=== PATIENT | female | born 1950 | race Caucasian/White ===

== ENCOUNTER 2018-04-15 13:58 | Outpatient (CLI) | payer MEDICARE | END 2018-04-15 13:59 | disposition home or self-care (01) | LOC: BICMAMMO 13:58 | PROVIDERS: ATTEND Family Medicine | DX: Z12.31 Encounter for screening mammogram for malignant neoplasm of breast (principal) | CPT/HCPCS: 77063; 77067 ==

== ENCOUNTER 2018-04-21 12:37 | Outpatient (CLI) | payer MEDICARE | END 2018-04-21 12:38 | disposition home or self-care (01) | LOC: BICMAMMO 12:37 | PROVIDERS: ATTEND Family Medicine | DX: N63.20 Unspecified lump in the left breast, unspecified quadrant (principal) | CPT/HCPCS: 76642; 77065; G0279 ==

== ENCOUNTER 2018-06-25 07:17 | Day surgery (SDC) | payer MEDICARE ==
[2018-06-25 07:50] LABS: #Lymphocytes 1.1 thou/uL (1.20-3.40); #Monocytes 0.5 thou/uL (0.11-0.59); #Neutrophils 4.5 thou/uL (1.40-6.50); %Basophils 0.5 % (0.0-1.0); %Eosinophils 0.8 % (0.0-10.0); %Lymphocytes 17.2 % (21.0-51.0); %Neutrophils 73.5 % (42.0-75.0); Hemoglobin 13.4 g/dL (12.0-16.0); Mean Corpuscular HGB CONC 31.5 g/dL (32.0-36.0); Mean Corpuscular Hemoglobin 29.7 pg (27.0-31.0); Mean Corpuscular Volume 94.4 fL (78.0-98.0); Mean Platelet Volume 8.2 fL (7.4-10.4); Platelet Count 156 thou/uL (130-400); RBC Distribution Width 12.4 % (11.5-14.5); Red Blood Cell (RBC) Count 4.52 mill/uL (4.20-5.40); White Blood Cell (WBC) Count 6.1 thou/uL (4.8-10.8)
[2018-06-25 08:00] LABS: Prothrombin Time 13.4 SEC (12.0-14.7)
[2018-06-25] MEDS ORDERED: Fentanyl 100 MCG/2 ML VIAL ONE (09:45)
[2018-06-25] MEDS ORDERED: Midazolam HCl 2 mg/2 ml Vial ONE (09:45)
[2018-06-25] MEDS ORDERED: Lidocaine 1% PF 5 ML VIAL ONE (09:45)
[2018-06-25] MEDS ORDERED: Sodium Bicarbonate 2.5 MEQ/5 ML VIAL ONE (09:46)
--- NOTE | 2018-06-25 11:39 | MRI ---
MRI CERVICAL SPINE WITH CONTRAST: HISTORY: This exam is performed in followup to a noncontrast cervical spine from 06/02/2018, which showed evid ence of a paraspinal mass in the musculature of the lower cervical spine, to the left. TECHNIQUE: Multiplanar, multisequential images of the cervical spine obtained. Post contrast images were obtain ed. FINDINGS: Post contrast images show diffuse enhancement of this mass. There are foci within the mid portion of this mass, which do not enhance, which may represent vascular structures. This mass has irregular m argins, measuring 3.7 cm in AP dimension x 2.5 cm in width. It appears to be located between the lev ator scapular muscle and the paraspinal musculature, just anterior to the rhomboid minor and trapeziu s musculature. IMPRESSION: The previously noted mass density in the left paraspinal musculature demonstrates diffuse enhancement on the post contrast study. There are nodular areas within this mass that do not enhance. This cou ld represent areas of central necrosis or possibly some nonenhancing venous structures. The borders are sharp, which would argue against a venolymphatic malformation. The patient is scheduled for a CT biopsy procedure. POS: [facility]
--- NOTE | 2018-06-25 12:40 | CT ---
NONCONTRAST ENHANCED CT IMAGES SOFT TISSUE NECK: HISTORY: Radiculopathy. FINDINGS: Noncontrast enhanced CT images soft tissue neck obtained. Images demonstrate an ill-defined mass just medial to the left levator scapulae muscle seen in the lo wer cervical region. This lesion measures approximately 3.9 x 1.9 cm. The lesion is posterior to th e posterior scalene muscle. It is of soft tissue density. Biopsy of this lesion is pending. Please also see accompanying MRI dictation. The right and left common carotid arteries are calcified. I am concerned about possible malignancy. No other significant abnormality is seen. IMPRESSION: Soft tissue mass medial to the left levator scapulae muscle. POS: [facility]
[2018-06-25 12:44] VITALS: BP 112/82; TEMP 98.8
--- NOTE | 2018-06-25 13:42 | CT ---
CT GUIDED PARASPINAL MASS BIOPSY: HISTORY: Paraspinal mass, left neck base. CONSCIOUS SEDATION: Versed 1 mg IV. Fentanyl 50 mcg IV. FINDINGS: After explaining the procedure and answering all questions, a CT neck was performed and reported sepa rately. The patient was placed on the CT table, in a right lateral decubitus position. radiology special procedure tech nique, buffered local anesthesia, CT guidance, conscious sedation, and a posterior approach were used to carefully advance a 22 gauge needle into the lobular mass at the left neck base posterior paraspi nal location. Attempt at aspiration with a 22 gauge needle yielded minimal blood. Additional local anesthesia was given. A 17 gauge trocar needle was then carefully advanced into the lesion, at which time significant venous blood was able to be aspirated and was submitted to pathology for evaluation . A total of three 18 gauge core biopsy specimens were also obtained and submitted to pathology for evaluation. The needle was removed. Post procedure imaging shows no evidence of complication. The patient tolerated the procedure well and was returned to the holding area in good condition, for furt her monitoring. IMPRESSION: Technically successful CT-guided biopsy, left posterior neck base paraspinal mass. While prior to th e biopsy, malignancy was favored, the behavior of the lesion at the time of biopsy is more suggestive of a vascular malformation. Pathology is pending. POS: [facility]
--- NOTE | 2018-06-28 15:24 | CT ---
CT GUIDED PARASPINAL MASS BIOPSY: HISTORY: Paraspinal mass, left neck base. CONSCIOUS SEDATION: Versed 1 mg IV. Fentanyl 50 mcg IV. FINDINGS: After explaining the procedure and answering all questions, a CT neck was performed and reported sepa rately. The patient was placed on the CT table, in a right lateral decubitus position. manager technical support nique, buffered local anesthesia, CT guidance, conscious sedation, and a posterior approach were used to carefully advance a 22 gauge needle into the lobular mass at the left neck base posterior paraspi nal location. Attempt at aspiration with a 22 gauge needle yielded minimal blood. Additional local anesthesia was given. A 17 gauge trocar needle was then carefully advanced into the lesion, at which time significant venous blood was able to be aspirated and was submitted to pathology for evaluation . A total of three 18 gauge core biopsy specimens were also obtained and submitted to pathology for evaluation. The needle was removed. Post procedure imaging shows no evidence of complication. The patient tolerated the procedure well and was returned to the holding area in good condition, for furt her monitoring. IMPRESSION: Technically successful CT-guided biopsy, left posterior neck base paraspinal mass. While prior to th e biopsy, malignancy was favored, the behavior of the lesion at the time of biopsy is more suggestive of a vascular malformation. Pathology is pending.
== END 2018-06-25 13:40 | disposition home or self-care (01) ==
LOC: SDC/OP 07:17 → EDSTATUS 10:00 → SDC/OP 13:40
PROVIDERS: ATTEND Surgery
PROC: 0W963ZX Drainage of Neck, Percutaneous Approach, Diagnostic (ICD-10-PCS; principal; 2018-06-25)
DX: R22.2 Localized swelling, mass and lump, trunk (principal); M54.12 Radiculopathy, cervical region; M48.02 Spinal stenosis, cervical region
CPT/HCPCS: 36415; 70490; 72142; 77002; 82565; 85025; 85610; 85730; 88112; 88305; 88333; 88334; J2001; J2250; J3010

== ENCOUNTER 2018-07-28 13:49 | Outpatient (CLI) | payer MEDICARE ==
[2018-07-28 16:27] LABS: Hemoglobin 13.1 g/dL (12.0-16.0); Mean Corpuscular HGB CONC 32.1 g/dL (32.0-36.0); Mean Corpuscular Hemoglobin 29.8 pg (27.0-31.0); Mean Corpuscular Volume 92.9 fL (78.0-98.0); Mean Platelet Volume 8.8 fL (7.4-10.4); Platelet Count 152 thou/uL (130-400); RBC Distribution Width 12.4 % (11.5-14.5); Red Blood Cell (RBC) Count 4.38 mill/uL (4.20-5.40)
[2018-07-28 16:34] LABS: INR-International Normal Ratio 1.4; Prothrombin Time 16.8 SEC (12.0-14.7)
[2018-07-28 16:35] LABS: PTT 35.3 SEC (22.9-36.1)
[2018-07-28 16:43] LABS: Anion Gap 10 mmol/L (10-20); BUN (Urea Nitrogen) 14 mg/dL (9.8-20.1); Calc. Creatinine Clearance 0 mL/min (70-130); Calcium 9.6 mg/dL (7.8-10.44); Carbon Dioxide 33 mmol/L (23-31); Chloride 99 mmol/L (98-107); Estimated GFR-MDRD 53; Glucose 73 mg/dL (80-115); Potassium 3.9 mmol/L (3.5-5.1); Sodium 138 mmol/L (136-145)
== END 2018-07-28 13:50 | disposition home or self-care (01) ==
LOC: LABBT 13:49
PROVIDERS: ATTEND Surgery
DX: Z01.818 Encounter for other preprocedural examination (principal); M54.12 Radiculopathy, cervical region; M48.02 Spinal stenosis, cervical region
CPT/HCPCS: 80048; 85027; 85610; 85730; 93005; 93010

== ENCOUNTER 2018-08-05 08:23 | Day surgery (SDC) | payer MEDICARE ==
[2018-07-28 14:17] VITALS: BMI 35.2
[2018-08-05] MEDS ORDERED: Sodium Chloride 0.9% 10 ML ONE (11:47)
[2018-08-05] MEDS ORDERED: Thrombin 5000 UNITS/5 ML VIAL ONE (11:47)
[2018-08-05] MEDS ORDERED: Midazolam HCl 2 mg/2 ml Vial ONE (13:06)
[2018-08-05] MEDS ORDERED: Fentanyl 100 MCG/2 ML VIAL ONE ×3 (13:06→16:08)
[2018-08-05] MEDS ORDERED: Meperidine HCl/PF 25 MG/ML VIAL SLOW IVP PRN (14:55)
[2018-08-05] MEDS ORDERED: PACU-Morphine 4MG/ML VIAL SLOW IVP PRN (14:55)
[2018-08-05] MEDS ORDERED: Promethazine HCl 25 MG/ML VIAL IM PRN (14:55)
[2018-08-05] MEDS ORDERED: Promethazine HCl 25 MG/ML VIAL SLOW IVP PRN (14:55)
[2018-08-05] MEDS ORDERED: Metoprolol Tartrate 5 MG/5 ML VIAL ONE (15:54)
[2018-08-05] MEDS ORDERED: Acetaminophen/Codeine 30-300mg Tablet PO PRN (15:58)
[2018-08-05] MEDS ORDERED: Fleet Enema 133 ML BOT PR PRN (15:58)
[2018-08-05] MEDS ORDERED: Acetaminophen 325 MG TAB PO PRN (15:58)
[2018-08-05] MEDS ORDERED: Milk Of Magnesia 30 ML UDCUP PO PRN (15:58)
[2018-08-05] MEDS ORDERED: traMADol HCl 50 MG TAB PO PRN (15:58)
[2018-08-05] MEDS ORDERED: Bisacodyl 10 MG SUPP PR PRN (15:58)
[2018-08-05] MEDS ORDERED: Mag-Al 1200 mg/1200 mg/30 ML UDCUP PO PRN (15:58)
[2018-08-05] MEDS ORDERED: Ondansetron HCl/PF 4 MG in Sodium Chloride 0.9% 50 ML IVPB PRN (15:59)
[2018-08-05] MEDS ORDERED: CEFAZOLIN/Water 2 GM/20 ML SYRINGE SLOW IVP SCH (16:00)
[2018-08-05] MEDS ORDERED: Fluticasone Propionate HFA 44 MCG AER INH PRN (16:00)
[2018-08-05] MEDS ORDERED: hydrALAZINE 20 MG/ML VIAL ONE (16:08)
[2018-08-05] MEDS ORDERED: hydrALAZINE 20 MG/ML VIAL SLOW IVP SCH (16:15)
[2018-08-05] MEDS: HYDROcodone/Acetaminophen 7.5/325 mg Tablet PO PRN (18:02)
[2018-08-05] MEDS: Sodium Chloride 0.9% 1,000 ML IV SCH ×2 (18:07→21:39)
[2018-08-05] MEDS: CEFAZOLIN 2 GM/50 ML-DEXTROSE 2 GM in Premix Bag 1 BAG IVPB SCH (18:45)
[2018-08-05] MEDS ORDERED: Atorvastatin Calcium 10 MG TAB PO SCH (21:00)
[2018-08-05] MEDS: Gabapentin 300 MG CAP PO SCH (21:38)
[2018-08-06] MEDS: HYDROcodone/Acetaminophen 7.5/325 mg Tablet PO PRN ×3 (01:04→13:11)
[2018-08-06] MEDS: CEFAZOLIN 2 GM/50 ML-DEXTROSE 2 GM in Premix Bag 1 BAG IVPB SCH ×2 (01:05→09:55)
[2018-08-06 04:56] VITALS: TEMP 98.3
--- NOTE | 2018-08-06 07:41 | OP ---
DATE OF PROCEDURE: 08/05/2018 OR: OR#12. WOUND TYPE: Type 1 wound. SURGEON: John Waters M.D. SUPERVISOR FABRICATION DEPARTMENT: Per Rm PA-C PREPROCEDURE DIAGNOSIES: Cervical stenosis with neck and arm pain and disk extrusion. POSTPROCEDURE DIAGNOSES: Cervical stenosis with neck and arm pain and disk extrusion. PROCEDURE: 1. Anterior C5-C6, C6-C7 diskectomies for decompression of spinal cord and nerve roots. 2. Placement of interbody spacer for arthrodesis C5-C6, C6-C7 with local bone autograft and allograf t. 3. Anterior cervical plate and screw fixation C5, C6, C7. 4. Use of operative microscope for microdissection. PROCEDURE: After informed consent was obtained from the patient, the patient brought to OR. Proper patient pause and identification was carried out. She was placed under excellent general endotrachea l anesthesia and positioned supine on the OR table. Cervical spine was kept in neutral position. Th e right anterior oblique osbaldo was made that would allow for approach to the C5, C6, C7 segments. Thi s region was sterilely cleansed, prepared, and draped. Proper patient pause and identification was c arried out. The wound was then opened with a combination of sharp, monopolar and blunt dissection. We proceeded lateral to the trachea and tracheoesophageal bundle and medial to the right carotid yancey th. We identified the prevertebral layer of deep cervical fascia and the longus colli muscles, these were retracted to allow for dissection. The C5, C6, C7 segments were exposed. Localization film co nfirmed our area of interest. We then performed distraction at C5-C6 and the microscope was brought in for microdissection. A C5-C6 diskectomy was performed with decompression of spinal cord and nerve roots and the endplates prepared. Interbody spacer packed with local bone autograft obtained from s sol incision and allograft was placed for arthrodesis. I was satisfied with the construct at this po int. We then released the distraction turned our attention to C6-C7. Distraction occurred at that s egment. A diskectomy was then performed at C6-C7 decompression of the neural elements. The endplate s were prepared, an interbody spacer packed with graft was placed as well at the C6-C7 segment for ar throdesis. Distraction was then released. We then turned our attention to removal of the microscope and anterior cervical plate screw fixation C5, C6, C7. This was done. Copious irrigation occurred throughout as did maximizing hemostasis. The wound was then closed in anatomic layers over a drain. The patient then emerged from anesthesia.
[2018-08-06] MEDS ORDERED: Potassium Chloride 20 MEQ TAB PO SCH (08:00)
[2018-08-06] MEDS ORDERED: Spironolactone 25 MG TAB PO SCH (08:00)
[2018-08-06 08:37] VITALS: BP 115/79
[2018-08-06] MEDS ORDERED: Escitalopram Oxalate 20 mg Tablet PO SCH (09:00)
[2018-08-06] MEDS ORDERED: Furosemide 80 MG TAB PO SCH (09:00)
[2018-08-06] MEDS ORDERED: busPIRone HCl 10 MG TAB PO SCH (09:00)
[2018-08-06] MEDS ORDERED: ALPRAZolam 1 MG TAB PO SCH (09:00)
[2018-08-06] MEDS ORDERED: Vitami E (Dl,Tocopheryl Acet) 400 UNITS CAP PO SCH (09:00)
[2018-08-06] MEDS ORDERED: Digoxin 0.125 MG TAB PO SCH (09:00)
[2018-08-06] MEDS ORDERED: Stress 600 With Zinc 1 TAB PO SCH (09:00)
[2018-08-06] MEDS ORDERED: Loratadine 10 MG TAB PO SCH (09:00)
[2018-08-06] MEDS: Gabapentin 300 MG CAP PO SCH (09:45)
== END 2018-08-06 13:45 | disposition home or self-care (01) ==
LOC: SDC 08:23 → SURG B 15:58 → SDC 08-06 13:45
PROVIDERS: ATTEND Surgery
PROC: 0RG20A0 Fusion of 2 or more Cervical Vertebral Joints with Interbody Fusion Device, Anterior Approach, Anterior Column, Open Approach (ICD-10-PCS; principal; 2018-08-05)
PROC: 0RG2070 Fusion of 2 or more Cervical Vertebral Joints with Autologous Tissue Substitute, Anterior Approach, Anterior Column, Open Approach (ICD-10-PCS; 2018-08-05)
PROC: 0RT30ZZ Resection of Cervical Vertebral Disc, Open Approach (ICD-10-PCS; 2018-08-05)
DX: M48.02 Spinal stenosis, cervical region (principal); M50.222 Other cervical disc displacement at C5-C6 level; Z79.01 Long term (current) use of anticoagulants; Z79.899 Other long term (current) drug therapy
CPT/HCPCS: 20930; 20936; 22551; 22552; 22845; 22853 ×2; 76001; C1713 ×2; C1776; 96374; 96375; 96376; J0131; J0360; J2250; J3010; J3490

== ENCOUNTER 2018-09-20 13:33 | Outpatient (CLI) | payer MEDICARE ==
--- NOTE | 2018-09-20 15:48 | RAD ---
FOUR VIEWS CERVICAL SPINE: Date: 09-20-18 Comparison: None. History: Cervical spine pain, prior surgery. FINDINGS: Anterior discectomy and fusion hardware is seen at the C5-6 and C6-7 level. No anterolisthesis or ret rolisthesis is noted within the cervical spine aside from minimal anterolisthesis at C3-4. No prevert ebral soft tissue swelling. There is significant degenerative change at the atlantoaxial interspace. Open mouth odontoid view demonstrates a normal appearing dens and C1-2 articulation. There is multile doreen mid cervical spine facet and uncal vertebral osteophyte formation. IMPRESSION: Post-operative and degenerative changes of the cervical spine as above. POS: [facility]
== END 2018-09-20 13:34 | disposition home or self-care (01) ==
LOC: TBSIIMAG 13:33
PROVIDERS: ATTEND Surgery
DX: M47.22 Other spondylosis with radiculopathy, cervical region (principal); M48.02 Spinal stenosis, cervical region; M50.10 Cervical disc disorder with radiculopathy, unspecified cervical region; Z98.1 Arthrodesis status
CPT/HCPCS: 72040

== ENCOUNTER 2018-11-17 13:57 | Outpatient (CLI) | payer MEDICARE ==
--- NOTE | 2018-11-17 15:02 | ULT ---
LEFT BREAST ULTRASOUND: Comparison: Mammogram and ultrasound, 04-21-18. History: Well circumscribed mass in the 2 o'clock position in the left breast on prior mammography. Technique: Multiplanar grayscale and color doppler images were obtained in a left breast ultrasound. FINDINGS: There is a well circumscribed hyperechoic mass at the 2 o'clock position of the right breast measurin g 2.8 x 1.4 x 1.9 cm in size. This does not demonstrate shadowing and is likely benign. This mass is also stable on mammography. IMPRESSION: BIRADS category 3 - probably benign finding. A 6 month follow up mammogram and ultrasound is recommen ded to ensure continued stability. POS: [facility]
== END 2018-11-17 13:58 | disposition home or self-care (01) ==
LOC: BICMAMMO 13:57
PROVIDERS: ATTEND Family Medicine
DX: R92.8 Other abnormal and inconclusive findings on diagnostic imaging of breast (principal); N63.20 Unspecified lump in the left breast, unspecified quadrant
CPT/HCPCS: 76642; 77065; G0279

== ENCOUNTER 2019-02-10 11:02 | Inpatient (IN) | payer MEDICARE ==
[2019-02-10] MEDS ORDERED: Acetaminophen 500 MG TAB ONE (11:34)
[2019-02-10] MEDS ORDERED: Azithromycin 500 MG VIAL ONE (11:34)
[2019-02-10] MEDS ORDERED: cefTRIAXone\\ROCEPHIN 1 GM VIAL ONE (11:34)
--- NOTE | 2019-02-10 11:34 | RAD ---
Exam: Chest one view HISTORY:Cough Comparison: None FINDINGS: Cardiac silhouette:Mild cardiomegaly Pulmonary vessels: Mildly prominent Costophrenic angles: Minimal blunting of the left costophrenic angle LUNGS: Hazy opacification the left lung base due to pleural effusion with adjacent parenchymal change s. Pneumothorax: None Osseous abnormalities: Cervical fusion hardware is noted. IMPRESSION: 1. Pleural and parenchymal changes in the left lung base. Continued surveillance is recommended.
[2019-02-10 11:56] LABS: ALT (SGPT) 14 U/L (8-55); AST (SGOT) 21 U/L (5-34); Albumin 4.1 g/dL (3.4-4.8); Alkaline Phosphatase 58 U/L (40-150); Anion Gap 10 mmol/L (10-20); BUN (Urea Nitrogen) 11 mg/dL (9.8-20.1); Bilirubin, Total 0.6 mg/dL (0.2-1.2); Calc. Creatinine Clearance 0 mL/min (70-130); Calcium 9.1 mg/dL (7.8-10.44); Carbon Dioxide 31 mmol/L (23-31); Chloride 96 mmol/L (98-107); Estimated GFR-MDRD 47; Glucose 104 mg/dL (80-115); Protein, Total 7.1 g/dL (6.0-8.3); Sodium 133 mmol/L (136-145)
[2019-02-10 11:57] LABS: #Lymphocytes 0.4 thou/uL (1.20-3.40); #Monocytes 0.3 thou/uL (0.11-0.59); #Neutrophils 4.4 thou/uL (1.40-6.50); %Basophils 0.3 % (0.0-1.0); %Eosinophils 0.2 % (0.0-10.0); %Lymphocytes 7.8 % (21.0-51.0); %Monocytes 5.1 % (0.0-10.0); %Neutrophils 86.6 % (42.0-75.0); Hemoglobin 12.5 g/dL (12.0-16.0); Mean Corpuscular HGB CONC 31.7 g/dL (32.0-36.0); Mean Corpuscular Hemoglobin 29.7 pg (27.0-31.0); Mean Corpuscular Volume 93.8 fL (78.0-98.0); Mean Platelet Volume 8.8 fL (7.4-10.4); Platelet Count 111 thou/uL (130-400); Platelet Morphology Comment Appears Decreased; RBC Distribution Width 12.2 % (11.5-14.5); RBC Morphology Normal; Red Blood Cell (RBC) Count 4.22 mill/uL (4.20-5.40); White Blood Cell (WBC) Count 5.1 thou/uL (4.8-10.8)
[2019-02-10] MEDS ORDERED: Diltiazem 125 MG/25 ML ONE (12:39)
[2019-02-10] MEDS ORDERED: Diltiazem 125 MG in Sodium Chloride 0.9% 100 ML IVPB SCH ×2 (13:00→19:00)
[2019-02-10] MEDS: Cefepime 2 GM in Sodium Chloride 0.9% 100 ML IVPB SCH (17:46)
[2019-02-10] MEDS: methylPREDNISolone Sod Succ 40 MG VIAL IVP SCH (17:47)
[2019-02-10 19:08] LABS: Actual Bicarbonate (HCO3a) 26.2 mEq/L (22-28); Base Excess (BEa) -3.9 mEq/L (-2.0 to +3.0); Calcium, Ionized 1.12 mmol/L (1.12-1.30); Carboxyhemoglobin (COHb) 0.6 gm% (0.0-3.0); Hemoglobin (Hb) 13.2 g/dL (12.0-16.0); O2 Tension (PaO2) 69.3 mmHg (> 80.0); Potassium - ABG Lab 4.34 mmol/L (3.70-5.30)
[2019-02-10] MEDS ORDERED: Diltiazem HCl 125 MG, Admixture Fee 1 EACH in Sodium Chloride 0.9% 100 ML IVPB SCH (19:30)
[2019-02-10] MEDS: ALPRAZolam 1 MG TAB PO PRN (19:42)
[2019-02-10] MEDS ORDERED: Ibuprofen 200 MG TAB PO PRN (19:43)
[2019-02-10 20:14] LABS: CO2 Tension 73.7 mmHg (35.0-45.0); Puncture Site RBRACHIAL; pH, Arterial 7.17 (7.35-7.45)
[2019-02-10 20:15] LABS: ALV-art Gradient 280.635 (0-20)
--- NOTE | 2019-02-11 00:07 | CON ---
DATE OF CONSULTATION: HISTORY OF PRESENT ILLNESS: Yesenia Matt is a 68-year-old female patient of Dr. Lara who has presented to the ER with shortness of breath, hypoxemia going on for several days. She says she was coughing some yellow to brown sputum, chills and sweats. Her sats apparently were 87% to 78%. She was placed on a non-rebreather, sats are apparently 99. She is now in the MICU where she is complaining of significant distress. Nurses notified me about the patient in the MICU and the reason for consult is long-time smoker, 4 packs a day, quit smoking several years ago. No previous history of pneumonia, TB, or asthma, though she says prior to a recent admission she was active. She could walk up to a block without getting markedly short of breath. PAST MEDICAL HISTORY: 1. Atrial fibrillation. She sees a local camp program director. 2. History of major anxiety. 3. History of multiple medications. PREVIOUS SURGERIES: Including shoulder surgery, appendectomy, tubal ligation, cervical surgery. HOME MEDICATIONS: Includes: 1. Xarelto 20. 2. Digoxin 0.25. 3. ProAir inhaler. 4. Lasix 80. 5. Claritin. 6. Metoprolol 25. 7. Protonix 40. 8. Spironolactone 25. 9. Vitamin E. 10. BuSpar 15. 11. Tramadol p.r.n. 12. Tizanidine t.i.d. 1 daily. ALLERGIES: NONE. 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 ALLERGIES: NONE. REVIEW OF SYSTEMS: Ten-point negative. PHYSICAL EXAMINATION: VITAL SIGNS: Blood pressure 128/80, pulse 122 irregular, temperature 99, respiratory 24, sats are 95% on supplemental oxygen. CHEST: Bilateral rhonchi, crackles, minimal wheezing. CARDIAC: SVT. ABDOMEN: Soft. LABORATORY DATA: White count 5000, H and H 12 and 39, platelet count is low 111. Lytes are normal, creatinine 1.6, sodium 133. IMAGING: Chest x-ray shows a questionable infiltrate in the left base, some cardiomegaly. The last echo I read was normal. BNP was 100. IMPRESSION: 1. Respiratory failure. 2. Bronchitis. 3. Chronic obstructive pulmonary disease. 4. Possible left-sided pneumonia with atrial fibrillation. 5. Obesity. 6. Anxiety. 7. Mild azotemia. PLAN: She was started on broad-spectrum antibiotics, neb treatments, steroids to her present regime. If condition gets worse, we will put on high-flow, presently she is on BiPAP, try and get a sputum culture. Serial exam. TIME SPENT: This is a 45-minute critical time. Job ID: [id number]
--- NOTE | 2019-02-11 01:29 | HP ---
HISTORY OF PRESENT ILLNESS: This is a 68-year-old female, patient of Dr. Pillo Lara. She reported to the ER with trouble breathing with palpitations, with a history of atrial fibrillation. In the ER, the workup done showed a small pleural effusion on the left side with atrial fibrillation and RVR with a rate in the 140s. The patient states that she started a couple days ago with a cough. She took Mucinex to try to help that and then today this became much worse where she was having more trouble getting her breath in and could feel her heart going faster. PAST MEDICAL HISTORY: Positive for hypertension, hyperlipidemia, atrial fibrillation, atherosclerotic cardiovascular disease, GERD, history of anxiety, and she has had some neuropathic pain. ALLERGIES: SHE HAS NO KNOWN DRUG ALLERGIES. HER CHART FROM THE OFFICE SHOWS THAT SHE HAD BEEN LAST SEEN BY DR. LARA IN OCTOBER FOR HYPERTENSION. PAST MEDICAL HISTORY STATED. PAST SURGICAL HISTORY: She had a neck, cervical spine surgery performed in August here by Dr. Waters. She had an appendectomy in 2010. MEDICATIONS: 1. BuSpar 15 mg twice a day. 2. Lexapro 20 mg a day. 3. Spironolactone 25 mg once a day. 4. Pravastatin 40 mg once a day. 5. Protonix 40 mg daily. 6. Digoxin 125 mcg daily. 7. P.r.n. tramadol, p.r.n. tizanidine for muscle spasms. 8. She is on vitamin D. 9. She is on 400 mg of vitamin E twice a day. 10. She is on B12 tablet. 11. She is also on 40 mg of Lasix twice a day. 12. Potassium chloride 20 mEq twice a day. 13. She is on alprazolam 1 mg twice a day p.r.n. 14. She is on gabapentin 300 mg t.i.d. SOCIAL HISTORY: She is , lives at home with her spouse. She was a former smoker, says she stopped in 2009. Occasional alcohol use. No illicit drug use. FAMILY HISTORY: Father was an alcoholic, had some kind of mental illness. Mother had heart disease and from [place]. Also had thyroid disease and anemia. She has a sister with some kind of an unspecified mental illness. REVIEW OF SYSTEMS: Patient is currently in the ICU, anxious, trying to breathe, and is not exactly being very cooperative with history taking due to the anxiety related to her tachypnea, but she denies any headache or visual changes. She denies any trouble chewing or swallowing. No anorexia. She denies any hemoptysis or hematemesis. She denies any nausea or vomiting. She denies any abdominal discomfort or pain. She has had loose bowels, she states for a long time and the nurses are worried because the odor is similar to a C diff stool, so that will be checked. She denies any dysuria or hematuria. She denies any paresis or paresthesias. She denies any homicidal or suicidal ideations. She denies any auditory or visual hallucinations. She denies any changes in her medication other than the Mucinex that she took for the last couple of days. PHYSICAL EXAMINATION: GENERAL: She is restless, uncomfortable, having some air hunger. VITAL SIGNS: She is afebrile, but tachypneic with a respiratory rate when she initially got here in the 20s to 30s. BP 130s over 80s, but tacking anywhere from 130s up to 150s in atrial fibrillation. HEENT: Her pupils are equal, round, reactive to light and accommodation. Sclera is anicteric. SKIN: Dry and intact. Moist. NECK: Supple. No JVD. No bruits. No thyromegaly. HEART: S1, S2, with irregularly irregular rhythm. No rubs or murmurs or gallops. LUNGS: Bilateral rales. There is no egophony. There are no rhonchi. She does have occasional wheezes. ABDOMEN: Soft, nontender, and nondistended. No palpable masses. No hepatosplenomegaly. GENITOURINARY: Deferred. RECTAL: Deferred. EXTREMITIES: Showed good palpable pulses in all 4 extremities. No cyanosis, clubbing, or edema. NEUROLOGIC: She is grossly intact, but very nervous and agitated with an O2 saturation that is dropping down into the 80s. LABORATORY DATA: Her white count is normal at 5.1, H and H is 12.5 and 39.5, platelet is 111, neutrophils at 86%, lymphocytes at 7.8%. Her chemistries shows sodium is slightly low at 133, potassium 4.0, chloride 96, bicarb is 31, BUN is 11, creatinine is 1.1. GFR is at 47. Glucose is at 104. Lactic acid is at 1.2. Calcium is normal at 9. AST is 21, ALT is 14. Beta-natriuretic peptide is at 100.3. Her dig level is 0.7. Chest x-ray shows slight left-sided pleural effusion. No true consolidation. Otherwise, lungs are clear. ASSESSMENT: Respiratory distress, atrial fibrillation with RVR. PLAN: We will plan on admission to the ICU, supportive care. We will start on diltiazem drip. Dr. Vega has been consulted from ICU. Dr. García will be consulted, that is her bunch maker. The patient does state that she sees Dr. Smith for her bowels, but we will check her stool for infection of C diff. ER doctor was concerned about pneumonia. I am not convinced that this is a pneumonia. It seems to be more of a COPD type exacerbation, although she has been told that she has COPD. Job ID: [id number]
[2019-02-11] MEDS: methylPREDNISolone Sod Succ 40 MG VIAL IVP SCH ×4 (01:31→16:59)
[2019-02-11 02:20] LABS: Bilirubin Negative (Negative); Blood, Urine Negative (Negative); Clarity CLEAR (Clear); Glucose, Urine (Dipstick) Negative (Negative); Leukocyte Trace (Negative); Nitrite Negative (Negative); Protein, Urine (Dipstick) 30 mg/dL (Neg-Trace); Specific Gravity, Urine 1.019 (1.002-1.036); Urobilinogen 0.2 mg/dL (0.2-1.0)
[2019-02-11 02:23] LABS: Bacteria/HPF None Seen HPF (None Seen); Hyaline Casts/LPF 7-10 HYALINE CAST LPF (0-3 Hyaline); Pathc Cast-AUWi Flag 2.04 (0-2.49); RBC/HPF 0-3 HPF (0-3); Squamous Epithelial 0-3 HPF (0-3)
[2019-02-11 02:25] LABS: Yeast-AUWi Flag 32.2 (0-25.0)
[2019-02-11 02:28] LABS: Yeast-All Forms None Seen HPF (None Seen)
[2019-02-11 02:30] LABS: Urine Culture Reflex Yes Yes
[2019-02-11] MEDS: Cefepime 2 GM in Sodium Chloride 0.9% 100 ML IVPB SCH ×2 (05:01→16:59)
--- NOTE | 2019-02-11 08:37 | RAD ---
CHEST ONE VIEW: HISTORY: Chest pain. COMPARISON: 02/10/2019 FINDINGS: There are worsening bilateral interstitial and linear parenchymal changes in the bases and pleural ef fusions, along with cardiomegaly. Mild bilateral vascular congestion. IMPRESSION: Developing bibasilar interstitial and alveolar opacity changes with small pleural effusions, minimal cardiomegaly, and stable vascular congestion. Continued short-term followup. POS: [facility]
--- NOTE | 2019-02-11 08:46 | PRG ---
DATE OF SERVICE: 02/11/2019 SUBJECTIVE: This morning, she is awake, alert, and responsive. Her gases yesterday showed marked respiratory acidosis. She was placed on BiPAP. OBJECTIVE: VITAL SIGNS: Temperature 97, pulse 85, blood pressure 104/78. CHEST: Decreased breath sounds. No wheezing. CARDIAC: Normal S1, S2. No gallops. ABDOMEN: No masses. LABORATORY DATA: White count 5000. Lytes are normal. Platelet count is decreased at 111. PCO2 was 73, pH was 7.17 with a PO2 of 69 on nasal O2. Creatinine 1.6. IMPRESSION: 1. Chronic obstructive pulmonary disease exacerbation. 2. Supraventricular tachycardia. 3. Possibly pneumonia. 4. Tobacco abuse. PLAN: Restart home antianxiety medication. X-ray being ordered. Continue steroids. She may need nocturnal BiPAP. Nutrition. PT. Will follow. Job ID: [id number]
[2019-02-11] MEDS ORDERED: Furosemide 40 MG TAB PO SCH (09:00)
[2019-02-11] MEDS: busPIRone HCl 5 MG TAB PO SCH (09:45)
[2019-02-11] MEDS: Rivaroxaban 10 MG TAB PO SCH (09:46)
[2019-02-11] MEDS: Digoxin 0.125 MG TAB PO SCH (09:46)
[2019-02-11] MEDS: Acetaminophen 500 MG TAB PO PRN (09:47)
[2019-02-11] MEDS: Escitalopram Oxalate 20 mg Tablet PO SCH ×2 (09:47→09:48)
[2019-02-11] MEDS: Spironolactone 25 MG TAB PO SCH (09:47)
[2019-02-11] MEDS: Furosemide 40 MG TAB PO SCH (09:47)
[2019-02-11] MEDS: ALPRAZolam 1 MG TAB PO SCH (09:48)
[2019-02-11] MEDS: Gabapentin 300 MG CAP PO SCH ×3 (09:48→20:59)
[2019-02-11] MEDS ORDERED: Furosemide 40 MG/4 ML VIAL SLOW IVP SCH ×2 (10:00→20:00)
[2019-02-11] MEDS: Potassium Chloride 20 MEQ TAB PO SCH (12:19)
--- NOTE | 2019-02-11 15:30 | CON ---
DATE OF CONSULTATION: 02/11/2019 ADDENDUM: Ms. Matt is feeling better after the diuretics. Her breathing is improved. Repeat BNP came back to 208. ASSESSMENT: Congestive heart failure, diastolic, acute on chronic improving. The patient also has bronchitis. PLAN: 1. Continue intravenous diuretics. 2. Continue intravenous diltiazem. Dose could probably be reduced as her situation improves. She does have chronic atrial fibrillation. Job ID: [id number]
--- NOTE | 2019-02-11 15:55 | CON ---
DATE OF CONSULTATION: 02/11/2019 REASON FOR CONSULTATION: 1. Difficulty breathing. 2. Atrial fibrillation. HISTORY OF PRESENT ILLNESS: Ms. Yesenia Matt is a very delightful 68-year-old woman, who has been having trouble breathing for a few days, finally went to the emergency room with severe difficulty breathing, and was transferred here for further care. The patient had a very high heart rate and atrial fibrillation with a very rapid ventricular response yesterday and has improved since then. The patient has received antibiotics, bronchodilators, and steroids. No chest pain or pressure. PAST HISTORY: 1. She has a history of chronic atrial fibrillation. 2. She had a previous cardiac catheterization showing no obstructive coronary stenosis at an outlying institution. 3. Chronic diastolic heart failure. It has been previously compensated. MEDICATIONS: Prior to admission, the patient was on Xarelto 20 mg a day, digoxin 0.125 mg a day, spironolactone 25 mg a day, potassium 20 mEq a day, Lasix 80 mg in the morning, and Toprol-XL 25 mg a day. ALLERGIES: NONE KNOWN. SOCIAL HISTORY: No alcohol or tobacco. She has a very supportive . REVIEW OF SYSTEMS: CONSTITUTIONAL: No significant weight gain or loss. Vision, no changes. Hearing, no change. PULMONARY: Positive shortness of breath. CARDIAC: Positive shortness of breath. GASTROINTESTINAL: No nausea, vomiting, or diarrhea. PHYSICAL EXAMINATION: GENERAL: This is a pleasant 68-year-old woman, in no distress. VITAL SIGNS: Blood pressure is 103/74, pulse 80, it is irregularly irregular. NECK: Veins are normal. Carotids, normal upstrokes. LUNGS: Clear anteriorly and laterally. CARDIAC: Irregularly irregular. No murmur, rub, or gallop. ABDOMEN: Soft and nontender. EXTREMITIES: Warm and dry. No clubbing or cyanosis or edema. PERTINENT LABORATORY: Sodium is 133. The BNP yesterday was 100.3. She had a blood gas yesterday, pH 7.17, pCO2 73.7, and PO2 69.3. Chest x-ray yesterday, some pleural and parenchymal changes in left base, but x-ray today to my interpretation, looks more like pulmonary vascular congestion. ASSESSMENT: 1. Atrial fibrillation, chronic with recent increase in rate, probably secondary to high catecholamine levels due to severe respiratory insufficiency. 2. Shortness of breath, could be multifactorial, probably some role of diastolic dysfunction, may be having some bronchitis as well. PLAN: 1. We will give her a dose of furosemide. 2. Recheck BNP. 3. We will try to reduce diltiazem. 4. Continue Xarelto. 5. Really need to avoid ibuprofen with Xarelto. 6. I will check back with her later to see how she is doing. Job ID: [id number]
--- NOTE | 2019-02-11 17:22 | PRG ---
DATE OF SERVICE: 02/11/2019 SUBJECTIVE: The patient is doing better today, breathing easier, still on the high-flow oxygen. OBJECTIVE: VITAL SIGNS: Heart rate is down to 82, O2 saturation is up to 98%. Her respiratory rate is 20 to 22. GENERAL: The patient had diuresis done earlier today after Dr. García saw her from a repeat chest x-ray with BNP doubled from 100 to 200 and after diuresis, she was feeling better. Chest x-ray still did not show any evidence of pneumonia. LUNGS: Still show some bilateral wheezes and rales, but mostly distant auscultatory sounds. HEART: Shows no rubs or murmurs or gallops. EXTREMITIES: Show good palpable pulses in all four extremities. ASSESSMENT: Still respiratory distress, chronic obstructive pulmonary disease exacerbation with combined systolic and diastolic congestive heart failure exacerbation. PLAN: Continue respiratory treatment for her shortness of breath. Note, would be weaning off the high-flow oxygen towards room air again where she was prior. Job ID: [id number]
[2019-02-11] MEDS: ALPRAZolam 1 MG TAB PO PRN (21:05)
[2019-02-12] MEDS: methylPREDNISolone Sod Succ 40 MG VIAL IVP SCH ×4 (01:35→18:25)
[2019-02-12 05:42] LABS: Anion Gap 11 mmol/L (10-20); BUN (Urea Nitrogen) 18 mg/dL (9.8-20.1); Calc. Creatinine Clearance 76 mL/min (70-130); Calcium 9.1 mg/dL (7.8-10.44); Carbon Dioxide 27 mmol/L (23-31); Chloride 105 mmol/L (98-107); Estimated GFR-MDRD 57; Glucose 169 mg/dL (80-115); Potassium 4.4 mmol/L (3.5-5.1); Sodium 139 mmol/L (136-145)
[2019-02-12] MEDS: Furosemide 20 MG/2 ML VIAL SLOW IVP SCH ×2 (05:54→16:36)
[2019-02-12] MEDS: Cefepime 2 GM in Sodium Chloride 0.9% 100 ML IVPB SCH ×2 (05:54→18:24)
[2019-02-12] MEDS: busPIRone HCl 5 MG TAB PO SCH (08:52)
[2019-02-12] MEDS: ALPRAZolam 1 MG TAB PO SCH (08:52)
[2019-02-12] MEDS: Digoxin 0.125 MG TAB PO SCH (08:53)
[2019-02-12] MEDS: Escitalopram Oxalate 20 mg Tablet PO SCH ×2 (08:53)
[2019-02-12] MEDS: Furosemide 40 MG TAB PO SCH (08:54)
[2019-02-12] MEDS: Gabapentin 300 MG CAP PO SCH ×3 (08:54→20:36)
[2019-02-12] MEDS: Diltiazem HCl 125 MG, Admixture Fee 1 EACH in Sodium Chloride 0.9% 100 ML IVPB SCH (08:54)
[2019-02-12] MEDS: Rivaroxaban 10 MG TAB PO SCH (08:54)
[2019-02-12] MEDS: Spironolactone 25 MG TAB PO SCH (08:54)
[2019-02-12] MEDS: Potassium Chloride 20 MEQ TAB PO SCH (11:54)
[2019-02-12] MEDS ORDERED: ALPRAZolam 0.5 MG TAB PO PRN (12:45)
--- NOTE | 2019-02-12 14:37 | PRG ---
DATE OF SERVICE: 02/12/2019 SUBJECTIVE: Yesenia Matt remains on high-flow O2. She has no complaints. She states she is feeling much better than when she was admitted, although she is not back to her baseline. OBJECTIVE: VITAL SIGNS: Afebrile, heart rate 82, respiratory rate in the low 20s, and oximetry is 95% on high-flow oxygen 40. Heart rate 99. At noon, last blood pressure recorded was 100/74. LUNGS: Still remarkable for faint wheezes. HEART: Regular rhythm. ABDOMEN: Soft and nontender. EXTREMITIES: Without edema. IMPRESSION: 1. Severe chronic obstructive pulmonary disease with an exacerbation. 2. Supraventricular tachycardia/atrial fibrillation. She responded to diuresis yesterday per Dr. García's note. She will continue with BiPAP intermittently and high-flow O2. Chest x-ray showed findings suggestive of pulmonary edema, though I suspect is rate related. We will continue with supportive care. Job ID: [id number]
--- NOTE | 2019-02-12 16:10 | PRG ---
DATE OF SERVICE: 02/12/2019 HISTORY OF PRESENT ILLNESS: The patient states she is doing better than yesterday. Nursing staff has along with Respiratory Therapy weaned the patient down to high-flow from BiPAP. The patient does have considerable anxiety still, but is coping better on prior home medications including buspirone as well as alprazolam. The patient has fan on face at bedside. Per nursing, the patient has tolerated diuresis well from yesterday. Review of vital signs; temperature of 99.4, pulse of 79 on Cardizem drip, respiratory rate of 22, oxygen saturation 97% on high-flow delivery system, blood pressure 100/79. Sodium of 139, potassium of 4.4, creatinine of 0.97. PHYSICAL EXAMINATION: GENERAL: The patient is in mild respiratory distress. HEENT: Head is normocephalic and atraumatic. Extraocular movements are intact. High-flow system and nasal cannula. Oral mucosa is moist. NECK: Supple. HEART: Irregular rate. Irregular rhythm at the time of exam. LUNGS: Coarse breath sounds bilaterally. Diminished at lower bases bilaterally. ABDOMEN: Soft and nontender. Positive bowel sounds throughout. EXTREMITIES: Lower extremities without cyanosis or edema. NEUROLOGIC: The patient is alert and oriented x3, somewhat anxious and has labile mood, tearful at times. ASSESSMENT AND PLAN: Supraventricular tachycardia, atrial fibrillation with rapid ventricular response, chronic obstructive pulmonary disease, [id number] respiratory failure, combined congestive heart failure, anxiety, and hypertension. Continue management per Cardiology and Pulmonology. Continue to follow along. The patient's anxiety medications have been restarted. Encourage the patient to comply with adjunctive therapy such as fan at bedside on face. She states that, at the time being, the alprazolam is helping her cope with oxygen hunger. I believe current plan is to sleep on BiPAP. We will continue to follow along. Job ID: [id number]
[2019-02-13] MEDS: methylPREDNISolone Sod Succ 40 MG VIAL IVP SCH ×4 (00:50→17:18)
[2019-02-13] MEDS: Diltiazem HCl 125 MG, Admixture Fee 1 EACH in Sodium Chloride 0.9% 100 ML IVPB SCH (00:50)
[2019-02-13] MEDS: Furosemide 20 MG/2 ML VIAL SLOW IVP SCH ×2 (06:17→14:46)
[2019-02-13] MEDS: Cefepime 2 GM in Sodium Chloride 0.9% 100 ML IVPB SCH ×2 (06:17→17:18)
[2019-02-13 08:40] LABS: ALT (SGPT) 22 U/L (8-55); AST (SGOT) 20 U/L (5-34); Albumin 3.9 g/dL (3.4-4.8); Alkaline Phosphatase 50 U/L (40-150); Anion Gap 13 mmol/L (10-20); BUN (Urea Nitrogen) 22 mg/dL (9.8-20.1); Bilirubin, Total 0.5 mg/dL (0.2-1.2); Calc. Creatinine Clearance 68 mL/min (70-130); Calcium 9.3 mg/dL (7.8-10.44); Carbon Dioxide 28 mmol/L (23-31); Chloride 102 mmol/L (98-107); Estimated GFR-MDRD 49; Globulin 2.8 g/dL (2.4-3.5); Glucose 190 mg/dL (80-115); Protein, Total 6.7 g/dL (6.0-8.3); Sodium 139 mmol/L (136-145)
[2019-02-13] MEDS: Spironolactone 25 MG TAB PO SCH (08:50)
[2019-02-13] MEDS: busPIRone HCl 5 MG TAB PO SCH (08:50)
[2019-02-13 08:51] LABS: Band 7 % (5-11); Hemoglobin 11.4 g/dL (12.0-16.0); Lymphocytes 13 % (21-51); MDiff Complete? YES; Mean Corpuscular HGB CONC 31.8 g/dL (32.0-36.0); Mean Corpuscular Hemoglobin 29.5 pg (27.0-31.0); Mean Corpuscular Volume 92.7 fL (78.0-98.0); Mean Platelet Volume 9.4 fL (7.4-10.4); Neutrophil 80 % (42-75); Platelet Count 97 thou/uL (130-400); Platelet Morphology Comment Appears Adequate; Red Blood Cell (RBC) Count 3.88 mill/uL (4.20-5.40); White Blood Cell (WBC) Count 6.3 thou/uL (4.8-10.8)
[2019-02-13] MEDS: Gabapentin 300 MG CAP PO SCH ×3 (08:51→21:16)
[2019-02-13] MEDS: Furosemide 40 MG TAB PO SCH (08:51)
[2019-02-13] MEDS: Digoxin 0.125 MG TAB PO SCH (08:51)
[2019-02-13] MEDS: Escitalopram Oxalate 20 mg Tablet PO SCH ×2 (08:51→08:52)
[2019-02-13] MEDS: Acetaminophen 500 MG TAB PO PRN (08:52)
[2019-02-13] MEDS: Rivaroxaban 10 MG TAB PO SCH (08:55)
[2019-02-13] MEDS ORDERED: ALPRAZolam 0.5 MG TAB PO SCH (09:00)
[2019-02-13] MEDS: Potassium Chloride 20 MEQ TAB PO SCH (11:22)
[2019-02-13] MEDS: Lorazepam 1 MG TAB PO SCH ×2 (14:46→21:16)
--- NOTE | 2019-02-13 16:08 | PRG ---
DATE OF SERVICE: 02/13/2019 SUBJECTIVE: Yesenia Matt is looking better. She is off high-flow oxygen. She is on 2 L per minute. OBJECTIVE: VITAL SIGNS: Heart rate is 87, respiratory rate is 20, oximetry is 99%, and blood pressure is 117/76. LUNGS: Remarkable for end-expiratory wheezes. HEART: Regular rhythm. ABDOMEN: Soft. EXTREMITIES: Trace edema. LABORATORY DATA: White count 6.3, hemoglobin 11.4, platelets 97,000. Sodium 139, potassium 4, chloride 102, bicarb 28, BUN 22, and creatinine 1.12. IMPRESSION: 1. Chronic obstructive pulmonary disease. 2. Chronic respiratory failure with hypoxia and hypercarbia. 3. Deconditioning. 4. Atrial fibrillation. PLAN: Continue supportive care. She appears to be clinically improving. Job ID: [id number]
--- NOTE | 2019-02-13 23:11 | PRG ---
DATE OF SERVICE: 02/13/2019 SUBJECTIVE: The patient still states that she has struggles with oxygen hunger and anxiety, and is amicable to changing Xanax to Ativan at this point in time and keeping a schedule. Otherwise, has been weaned off the high-flow down to nasal cannula today. Remains on drip therapy for heart rate control and cefepime and Levaquin at this point in time to cross coverage for lung, doing well with breathing treatments. Remains on IV steroids. The patient has no additional acute complaints. Remains on the IV Lasix. Vital signs; temperature 97.7, pulse of 76 on drip, oxygen saturation 99% on 3 L nasal cannula, respirations 24. Laboratory work; white blood cell count 6.3, hemoglobin 11.4. Creatinine of 1.1 , glucose of 190, sodium of 139 with potassium of 4.0. C diff toxin negative. Urine negative at 36 hours. Blood cultures negative at 48 hours. PHYSICAL EXAMINATION: GENERAL: The patient is alert and oriented, in no acute distress. HEENT: Head is normocephalic and atraumatic. Extraocular movements are intact. Sclerae are clear. Oral mucosa is most__. NECK: Supple. HEART: Irregularly irregular. LUNGS: Coarse bronchial breath sounds bilaterally. Diminished breath sounds bilateral bases. No wheezes, rhonchi, or rales. ABDOMEN: Soft, nontender. Positive bowel sounds throughout. EXTREMITIES: Lower extremities without cyanosis or edema. NEUROLOGIC: The patient alert and oriented x3. No focal deficits. Speech is normal. The patient is anxious with flat affect. ASSESSMENT/PLAN: Atrial fibrillation with tachycardia, currently controlled on drips. COPD, currently controlled with steroids, breathing treatments, and antibiotics. With acute on chronic respiratory failure managed by oxygen therapy, currently weaning down slowly to nasal cannula. Continued on Lasix regarding her history of congestive heart failure, combined type. Hopefully, the patient can be weaned off drips tomorrow and look for move to a floor status. We will continue to follow along while in ICU with Critical Care and Cardiology recommendations. Job ID: [id number] MTDD
[2019-02-14] MEDS: methylPREDNISolone Sod Succ 40 MG VIAL IVP SCH ×2 (00:05→06:20)
[2019-02-14] MEDS: Diltiazem HCl 125 MG, Admixture Fee 1 EACH in Sodium Chloride 0.9% 100 ML IVPB SCH (00:05)
[2019-02-14 06:00] LABS: #Lymphocytes 0.3 thou/uL (1.20-3.40); #Monocytes 0.3 thou/uL (0.11-0.59); #Neutrophils 4.9 thou/uL (1.40-6.50); %Monocytes 4.8 % (0.0-10.0); %Neutrophils 90.2 % (42.0-75.0); Mean Corpuscular Hemoglobin 29.7 pg (27.0-31.0); Mean Corpuscular Volume 92.9 fL (78.0-98.0); Mean Platelet Volume 9.2 fL (7.4-10.4); Platelet Count 106 thou/uL (130-400); RBC Distribution Width 11.9 % (11.5-14.5); Red Blood Cell (RBC) Count 3.71 mill/uL (4.20-5.40); White Blood Cell (WBC) Count 5.4 thou/uL (4.8-10.8)
[2019-02-14 06:20] LABS: ALT (SGPT) 22 U/L (8-55); AST (SGOT) 15 U/L (5-34); Albumin 3.8 g/dL (3.4-4.8); Alkaline Phosphatase 44 U/L (40-150); Anion Gap 10 mmol/L (10-20); BUN (Urea Nitrogen) 21 mg/dL (9.8-20.1); Bilirubin, Total 0.4 mg/dL (0.2-1.2); Calc. Creatinine Clearance 71 mL/min (70-130); Calcium 9.4 mg/dL (7.8-10.44); Carbon Dioxide 29 mmol/L (23-31); Chloride 101 mmol/L (98-107); Estimated GFR-MDRD 51; Globulin 2.8 g/dL (2.4-3.5); Glucose 301 mg/dL (80-115); Potassium 4.3 mmol/L (3.5-5.1); Protein, Total 6.6 g/dL (6.0-8.3); Sodium 136 mmol/L (136-145)
[2019-02-14] MEDS: Cefepime 2 GM in Sodium Chloride 0.9% 100 ML IVPB SCH ×2 (06:20→17:49)
[2019-02-14] MEDS: Furosemide 20 MG/2 ML VIAL SLOW IVP SCH ×2 (06:20→14:20)
[2019-02-14] MEDS: Lorazepam 1 MG TAB PO SCH ×3 (06:22→22:01)
[2019-02-14] MEDS ORDERED: Rivaroxaban 10 MG TAB ONE (09:28)
[2019-02-14] MEDS: Spironolactone 25 MG TAB PO SCH (09:37)
[2019-02-14] MEDS: Rivaroxaban 10 MG TAB PO SCH (09:37)
[2019-02-14] MEDS: busPIRone HCl 5 MG TAB PO SCH (09:37)
[2019-02-14] MEDS: Digoxin 0.125 MG TAB PO SCH (09:38)
[2019-02-14] MEDS: Gabapentin 300 MG CAP PO SCH ×3 (09:38→20:15)
[2019-02-14] MEDS: Escitalopram Oxalate 20 mg Tablet PO SCH (09:38)
--- NOTE | 2019-02-14 10:05 | PRG ---
DATE OF SERVICE: 02/14/2019 SUBJECTIVE: Ms. Rushing is in no distress. OBJECTIVE: VITAL SIGNS: Heart rate 88, respiratory rate 18, oximetry is 95% on 1 L, and blood pressure 120/82. LUNGS: Distant with end-expiratory wheezes. HEART: Regular rhythm. ABDOMEN: Soft and nontender. EXTREMITIES: Without edema. LABORATORY DATA: White count 5.4, hemoglobin 11.0, platelets 106,000. Sodium 136, potassium 4.3, chloride 101, bicarb 29, BUN 21, and creatinine 1.07. IMPRESSION: 1. Acute on chronic respiratory failure with hypoxemia and hypercarbia, clinically improving. 2. Chronic obstructive pulmonary disease exacerbation, clinically improving. 3. Deconditioning. 4. Atrial fibrillation. 5. Borderline thrombocytopenia. PLAN: I would think she could move out of the Critical Care Unit. She is mildly encephalopathic, but I suspect that is all related to being in the ICU. We will decrease her steroid dosing, which may help with her confusion. We will continue to follow. Job ID: [id number]
--- NOTE | 2019-02-14 10:48 | PRG ---
DATE OF SERVICE: 02/14/2019 SUBJECTIVE: Ms. Matt is doing better. She feels better, said breathing is still not back to normal however. OBJECTIVE: VITAL SIGNS: Blood pressure 127/75, pulse is in the 80s, it is atrial fibrillation with a controlled rate. LUNGS: Clear. CARDIAC: Irregularly irregular. ABDOMEN: Soft, nontender. EXTREMITIES: There is only minimal edema. ASSESSMENT: 1. Congestive heart failure, diastolic, improved. 2. Chronic atrial fibrillation. PLAN: 1. Change to oral diltiazem. Try to use low dose as possible. 2. Continue intravenous diuretics one more day. We will continue to follow with you. Job ID: [id number]
[2019-02-14] MEDS: Potassium Chloride 20 MEQ TAB PO SCH (12:43)
--- NOTE | 2019-02-14 18:21 | PRG ---
DATE OF SERVICE: 02/14/2019 SUBJECTIVE: The patient has tolerated being off Cardizem drip this afternoon. Cardiology wanting to maintain the patient on IV Lasix additional day. The patient has been titrated down to oral steroids. Continuing on breathing treatments, antibiotics. Was weaned down to nasal cannula quite nicely. Working with therapy services, getting up to side of the bed and is a bit more tired this afternoon secondarily, but doing well, sleeping with nasal cannula today. Has no additional acute complaints. Nursing staff states telemetry is full, maybe tomorrow prior to the patient moving to floor status. Temperature 97.8, respiratory rate 16, oxygen saturation 99% on 1 L nasal cannula, blood pressure 121/71. White blood cell count of 5.4, hemoglobin of 11.0, platelet count of 106. Creatinine of 1.07, sodium of 136, potassium of 4.3. OBJECTIVE: GENERAL: The patient is sleeping comfortably, easy to awaken, alert following that, in no acute distress. HEENT: Head is normocephalic and atraumatic. Extraocular movements are intact. Sclerae are white. Nasal cannula in place. Oral mucosa is moist. NECK: Supple. HEART: Irregularly irregular. LUNGS: With diminished breath sounds at bilateral bases. No rubs or wheezes. ABDOMEN: Soft and nontender. Positive bowel sounds throughout. EXTREMITIES: Lower extremities without cyanosis or edema. NEUROLOGIC: The patient is alert and oriented x3. No focal deficits. Speech is normal. ASSESSMENT AND PLAN: Atrial fibrillation with tachycardia with underpinning chronic obstructive pulmonary disease, and congestive heart failure. Management as above. Weaning towards all orals. Hopefully, we will transition to telemetry tomorrow or later this evening if bed available, then it will be a matter of disposition with therapy services, which had already been initiated with Physical Therapy and Cardiopulmonary Rehab. We will continue to follow her for Dr. Lara as he will be gone until Thursday. Job ID: [id number]
[2019-02-15 04:49] LABS: #Lymphocytes 0.3 thou/uL (1.20-3.40); #Monocytes 0.4 thou/uL (0.11-0.59); %Eosinophils 0.2 % (0.0-10.0); %Lymphocytes 4.6 % (21.0-51.0); %Monocytes 5.6 % (0.0-10.0); %Neutrophils 89.7 % (42.0-75.0); Hemoglobin 11.3 g/dL (12.0-16.0); Mean Corpuscular HGB CONC 32.5 g/dL (32.0-36.0); Mean Corpuscular Hemoglobin 30.1 pg (27.0-31.0); Mean Corpuscular Volume 92.7 fL (78.0-98.0); Mean Platelet Volume 9.2 fL (7.4-10.4); Platelet Count 114 thou/uL (130-400); RBC Distribution Width 12.1 % (11.5-14.5); Red Blood Cell (RBC) Count 3.75 mill/uL (4.20-5.40); White Blood Cell (WBC) Count 6.7 thou/uL (4.8-10.8)
[2019-02-15 05:02] LABS: ALT (SGPT) 18 U/L (8-55); AST (SGOT) 11 U/L (5-34); Albumin 3.6 g/dL (3.4-4.8); Alkaline Phosphatase 45 U/L (40-150); Anion Gap 12 mmol/L (10-20); BUN (Urea Nitrogen) 22 mg/dL (9.8-20.1); Bilirubin, Total 0.5 mg/dL (0.2-1.2); Calc. Creatinine Clearance 71 mL/min (70-130); Calcium 9.1 mg/dL (7.8-10.44); Carbon Dioxide 29 mmol/L (23-31); Chloride 100 mmol/L (98-107); Estimated GFR-MDRD 51; Globulin 2.8 g/dL (2.4-3.5); Glucose 257 mg/dL (80-115); Potassium 4.4 mmol/L (3.5-5.1); Protein, Total 6.4 g/dL (6.0-8.3); Sodium 137 mmol/L (136-145)
[2019-02-15] MEDS: Cefepime 2 GM in Sodium Chloride 0.9% 100 ML IVPB SCH (05:20)
[2019-02-15] MEDS: Furosemide 20 MG/2 ML VIAL SLOW IVP SCH ×2 (05:20→14:57)
[2019-02-15] MEDS: Lorazepam 1 MG TAB PO SCH ×3 (05:29→20:40)
[2019-02-15] MEDS ORDERED: Dextrose 50% Abboject 50 ML SYRINGE SLOW IVP PRN (06:05)
[2019-02-15] MEDS ORDERED: Dextrose 5% in Water 1,000 ML IV PRN (06:05)
--- NOTE | 2019-02-15 09:22 | RAD ---
CHEST TWO VIEWS: History: CHF. Follow up. Comparison: 02-11-19 FINDINGS: Cardiac silhouette is magnified and enlarged. Pulmonary vasculature less engorged than on prior study . Near complete clearing of the right base. Slight improvement of the infiltrate at the left base. No evidence of pneumothorax. Post-operative changes of the cervical spine. IMPRESSION: Radiographic improvement in appearance of CHF. POS: TPC
[2019-02-15] MEDS: predniSONE 20 MG TAB PO SCH (09:23)
[2019-02-15] MEDS: Digoxin 0.125 MG TAB PO SCH (09:24)
[2019-02-15] MEDS: Gabapentin 300 MG CAP PO SCH ×3 (09:24→20:40)
[2019-02-15] MEDS: busPIRone HCl 5 MG TAB PO SCH (09:24)
[2019-02-15] MEDS: Spironolactone 25 MG TAB PO SCH (09:24)
[2019-02-15] MEDS: Escitalopram Oxalate 20 mg Tablet PO SCH (09:24)
[2019-02-15] MEDS: Rivaroxaban 10 MG TAB PO SCH (09:59)
[2019-02-15] MEDS: Diltiazem HCl SR 90 mg Capsule PO SCH (10:00)
[2019-02-15] MEDS: Potassium Chloride 20 MEQ TAB PO SCH (11:39)
[2019-02-15] MEDS: HumaLOG 300 UNITS/3 ML VIAL SC PRN ×2 (17:10→20:41)
--- NOTE | 2019-02-15 19:36 | PRG ---
DATE OF SERVICE: 02/15/2019 HISTORY OF PRESENT ILLNESS: The patient has made slow progress, still requiring 1-2 L nasal cannula depending on time of day sleeping, was able to ambulate 200 feet with physical therapy on half a liter nasal cannula. The patient had echocardiogram this evening, read is not back, is pending. Has been tolerating Accu-Cheks well with sliding scale insulin. Review of chemistry this morning, creatinine of 1.07, sodium of 137, potassium 4.4. Chest x-ray this a.m., somewhat improved congestive heart failure. PHYSICAL EXAMINATION: VITAL SIGNS: Temperature of 97.0, pulse of 83, respiratory rate of 23, oxygen saturation 93% on 1 L nasal cannula. GENERAL: The patient is alert and oriented, in no acute distress. HEENT: Head is normocephalic and atraumatic. Extraocular movements are intact. Nasal cannula in place. Oral mucosa is moist. NECK: Supple. HEART: Irregularly irregular. LUNGS: Diminished breath sounds at bilateral bases. No rhonchi or rales. ABDOMEN: Soft, nontender. Positive bowel sounds throughout. EXTREMITIES: Lower extremities without cyanosis or edema. NEURO: No focal deficits. Speech is normal. ASSESSMENT AND PLAN: Congestive heart failure with atrial fibrillation with controlled rate. Acute on chronic respiratory failure regarding underpinnings of chronic obstructive pulmonary disease. The patient is continued on oral steroids, has completed antibiotic course. Cefepime has been discontinued by Pulmonology Service. Maintained on digoxin and diltiazem oral. Heart rate is remained relatively stable. IV Lasix, continue 20 mg b.i.d. The patient's mood has been stable regarding lorazepam scheduled. Levaquin oral has been continued from IV. The patient is also maintained on spironolactone and Xarelto for anticoagulation. 3 mg prednisone currently. Pulmonary and Critical Care continue to follow. We will follow up on their recommendations, echo. The patient is doing well with physical therapy. Sounds interested in going home and verbalized understanding and possible cardiovascular rehab following discharge or continue physical therapy services. Job ID: [id number]
[2019-02-16] MEDS: Furosemide 20 MG/2 ML VIAL SLOW IVP SCH ×2 (07:12→14:08)
[2019-02-16] MEDS: Lorazepam 1 MG TAB PO SCH ×3 (07:12→21:31)
[2019-02-16] MEDS: predniSONE 20 MG TAB PO SCH (08:30)
[2019-02-16] MEDS ORDERED: Diltiazem HCl SR 90 mg Capsule PO SCH (09:00)
--- NOTE | 2019-02-16 09:14 | PRG ---
DATE OF SERVICE: 02/16/2019 SUBJECTIVE: This morning, she is doing better. X-ray yesterday shows much improvement in her bilateral infiltrates, a combination of CHF and pneumonia. OBJECTIVE: VITAL SIGNS: Saturations are , respirations 20, temperature 98, and blood pressure 140/62. CHEST: Decreased breath sounds. No wheezing. CARDIAC: Normal S1 and S2. No gallops. ABDOMEN: No masses. IMPRESSION: 1. Congestive heart failure. 2. Pneumonia. 3. Chronic obstructive pulmonary disease. 4. Respiratory failure. PLAN: She can probably be switched over to oral Lasix. Disposition as per Cardiology. We will try and get a baseline PFT, O2 saturation on room air and ambulation. Job ID: [id number]
[2019-02-16] MEDS: Digoxin 0.125 MG TAB PO SCH (09:40)
[2019-02-16] MEDS: Escitalopram Oxalate 20 mg Tablet PO SCH (09:40)
[2019-02-16] MEDS: Diltiazem HCl SR 90 mg Capsule PO SCH (09:40)
[2019-02-16] MEDS: Rivaroxaban 10 MG TAB PO SCH (09:40)
[2019-02-16] MEDS: Gabapentin 300 MG CAP PO SCH ×3 (09:40→21:31)
[2019-02-16] MEDS: busPIRone HCl 5 MG TAB PO SCH (09:40)
[2019-02-16] MEDS: Spironolactone 25 MG TAB PO SCH (09:40)
--- NOTE | 2019-02-16 10:05 | PRG ---
DATE OF SERVICE: 02/16/2019 SUBJECTIVE: Ms. Matt is doing better today. Heart rate is about in the 90s at rest, when she coughs, the rate goes up to about 110. Her breathing is improving. OBJECTIVE: VITAL SIGNS: Her blood pressure 144/62. Pulse, as mentioned above. LUNGS: Clear. CARDIAC: Irregularly irregular. ABDOMEN: Soft and nontender. EXTREMITIES: There is no edema. LABORATORY DATA: The blood sugars are coming down, most recently 141. ASSESSMENT: 1. Diastolic heart failure, improved with a normal ejection fraction. 2. Chronic atrial fibrillation. PLAN: 1. She is on spironolactone. 2. She is on intravenous furosemide. 3. Chest x-ray done yesterday reveals clear lung glaser. Does not appear to be in heart failure. Continue current medical regimen, probably changed to oral diuretics tomorrow. Job ID: [id number]
[2019-02-16] MEDS: Potassium Chloride 20 MEQ TAB PO SCH (14:08)
--- NOTE | 2019-02-16 14:39 | EKG ---
Test Reason : CHEST PAIN Blood Pressure : / mmHG Vent. Rate : 100 BPM Atrial Rate : 416 BPM P-R Int : 000 ms QRS Dur : 078 ms QT Int : 284 ms P-R-T Axes : 000 032 054 degrees QTc Int : 366 ms Atrial fibrillation Low voltage QRS Nonspecific ST and T wave abnormality Abnormal ECG Confirmed by NUBIA STEELE ([id number]) on 02/16/2019 2:39:30 PM Referred By: GARRETT Confirmed By:NUBIA STEELE
[2019-02-16 15:04] VITALS: BMI 34.4
--- NOTE | 2019-02-16 15:16 | PQF ---
DATE: 02-16-19 ATTN: DR. ANNETTE TIWARI Please exercise your independent, professional judgment in responding to the clarification form. Clinical indicators are provided on the bottom of this form for your review Please check appropriate box(s): [ ] Acute Renal Failure (ARF) / Acute Kidney Injury (CORKY) [ ] Insignificant Lab Values [ ] Other diagnosis [ x] Unable to determine In addition, please specify: Present on Admission (POA): [ ] Yes [ ] No [ x ] Unable to determine National Kidney Foundation Guidelines for CKD Staging Stage I Kidney damage with normal or increased GFR GFR > 90 Stage II Kidney damage with mildly decreased GFR GFR 60-89 Stage III Kidney damage with moderately decreased GFR GFR 30-59 Stage IV Kidney damage with severely decreased GFR GFR 16-29 Stage V Kidney failure GFR<15 ESRD End Stage Renal Disease On dialysis Acute Renal Failure/Acute Kidney Failure defined as: Increases in SCr by (>) 0.3 mg/dl within 48 hours OR- Increases in SCr by (>) 1.5 times baseline, known or presumed to have occurred within the prior 7 days OR- Urine volume < 0.5 ml/kg/hour for 6 hours (KDIGO supplement 2012 for RIFLE/VERONIQUE criteria) For continuity of documentation, please document condition throughout progress notes and discharge summary. Thank You. CLINICAL INDICATORS - SIGNS / SYMPTOMS / LABS: GFR: 02-10-19: 47 02-12-19: 57 02-13-19: 49 02-14-19: 51 02-15-19: 51 CREATININE: 02-10-19: 1.16 02-12-19: 0.97 02-13-19: 1.12 02-14-19: 1.07 02-15-19 1.07 BUN: 02-10-19: 11 02-12-19: 18 02-13-19: 22 02-14-19: 21 02-15-19: 22 RISK FACTORS: ER: TYLENOL -CODEINE #3, FUROSEMIDE, DIGOXIN, LEXAPRO, METOPROLOL, SPIRONOLACTONE H&P: HX OF HTN, HYPERLIPIDEMIA, CAD, GERD TREATMENTS: ER: IVF NS X 2 L (This form is maintained as a part of the permanent medical record) 2014 [employer]. All Rights Reserved OZZIE [email or web address] Office: [phone] ZAKIA
[2019-02-16] MEDS: HumaLOG 300 UNITS/3 ML VIAL SC PRN ×2 (16:50→21:37)
[2019-02-17] MEDS: Furosemide 20 MG/2 ML VIAL SLOW IVP SCH (05:45)
[2019-02-17] MEDS: Lorazepam 1 MG TAB PO SCH ×3 (05:45→21:18)
[2019-02-17] MEDS: Rivaroxaban 10 MG TAB PO SCH (08:18)
[2019-02-17] MEDS: Digoxin 0.125 MG TAB PO SCH (08:18)
[2019-02-17] MEDS: Gabapentin 300 MG CAP PO SCH ×3 (08:18→21:18)
[2019-02-17] MEDS: busPIRone HCl 5 MG TAB PO SCH (08:19)
[2019-02-17] MEDS: predniSONE 20 MG TAB PO SCH (08:19)
[2019-02-17] MEDS: Escitalopram Oxalate 20 mg Tablet PO SCH (08:19)
[2019-02-17] MEDS: Spironolactone 25 MG TAB PO SCH (08:19)
--- NOTE | 2019-02-17 08:19 | PRG ---
DATE OF SERVICE: 02/16/2019 SUBJECTIVE: The patient is feeling some better. She continues to feel short of breath. She was able to ambulate in the room, but gets significantly short of breath. Still requiring 1 to 2 L of oxygen via nasal cannula. Denies chest pain. Good appetite. Positive bowel movements. OBJECTIVE: VITAL SIGNS: Temperature 98.1, pulse of 100, respirations 20, blood pressure 144/62, pulse ox on 02/16/2019 was 85% to 98% on 1 to 2 L nasal cannula. GENERAL: She is awake and alert, in no acute distress. Speech is clear. NECK: Supple. HEART: Irregularly, irregular. LUNGS: With scattered rhonchi. Few expiratory wheezes during neb treatment. ABDOMEN: Soft. EXTREMITIES: No edema. LABORATORY DATA: Reviewed. Accu-Cheks of 170, 141, 248. Chest x-ray from 02/15/2019 revealed improvement, appearance of congestive heart failure. Echocardiogram with ejection fraction of 50% to 55%, atrial fibrillation. Severely dilated left atrium. Moderate mitral regurgitation with moderate annular calcification. No aortic stenosis. ASSESSMENT AND PLAN: This is a 68-year-old female patient with a history of type 2 diabetes, remote smoker and congestive heart failure, admitted for congestive heart failure with atrial fibrillation, and respiratory distress. 1. Congestive heart failure is improved with diuresis. Continue plan per Cardiology. 2. Chronic obstructive pulmonary disease exacerbation, on steroids, neb treatments, antibiotics. I will continue plan. 3. Type 2 diabetes. Continue insulin coverage, was secondary to steroid therapy. 4. Deep vein thrombosis prophylaxis. 5. Anxiety. We will continue BuSpar, Lexapro, and Ativan scheduled. 6. Deep venous thrombosis prevention, on Xarelto. 7. Disposition. Hopefully, home in the next few days. Job ID: [id number]
[2019-02-17] MEDS ORDERED: predniSONE 20 MG TAB PO SCH ×2 (08:23→09:00)
--- NOTE | 2019-02-17 08:23 | PRG ---
DATE OF SERVICE: 02/17/2019 SUBJECTIVE: The patient is feeling much better. She walked yesterday with her . Continues to have some dyspnea on exertion, but improves every day. Cough continues, but improves as well. She is feeling less short of breath. Good appetite. Positive bowel movements. Denies chest pain. OBJECTIVE: VITAL SIGNS: Temperature 97.8, pulse of 86 to 130, respirations 14 to 20, blood pressure 143/95, pulse ox 88% to 93% on room air and up to 95% to 96% on 1 L nasal cannula. GENERAL: She is awake and alert, in no acute distress. Speech is clear. NECK: Supple. HEART: Irregularly irregular. LUNGS: Clear with occasional rhonchi. ABDOMEN: Soft. EXTREMITIES: With no edema. No calf tenderness. LABORATORY DATA: Accu-Cheks 98, 286, 254, 170, 141. IMAGING DATA: No chest x-ray this morning. ASSESSMENT AND PLAN: This is a 68-year-old female patient admitted with respiratory failure, requiring ICU support. 1. Chronic obstructive pulmonary disease exacerbation. We will continue neb treatments. Weaning steroids. Continue plan per Pulmonary. Abnormal PFT with decreased FEV1 and [id number]. Hopefully, will be able to wean off steroids to help her blood sugars as well as wean off beta-agonist to help with her heart rate. 2. Congestive heart failure. We will continue to wean diuresis. Hopefully, we will be able to switch to oral diuresis. We will arrange for outpatient heart failure clinic. 3. Type 2 diabetes. We will continue insulin coverage. May require long-term management with diabetic medications. 4. Anxiety. Appears to be stable. She does get tearful during conversations, likely worsened with the steroids. We will continue her oral treatment. 5. Disposition. Again, we will arrange for cardiac rehab in heart failure clinic and look into home health with home oxygen p.r.n., hopefully home in the next day. Job ID: [id number]
[2019-02-17] MEDS: Diltiazem HCl SR 90 mg Capsule PO SCH (08:35)
--- NOTE | 2019-02-17 09:03 | PRG ---
DATE OF SERVICE: 02/17/2019 SUBJECTIVE: This morning, she is better. Less short of breath. OBJECTIVE: VITAL SIGNS: Saturations are 91% on room air, blood pressure 120/76. CHEST: Decreased breath sounds. No wheezing. CARDIAC: Normal S1, S2. No gallops. ABDOMEN: No masses. LABORATORY DATA: FEV1 is 0.99, 44% predicted, FVC is 1.69, 57% predicted. IMPRESSION: 1. Severe chronic obstructive pulmonary disease. 2. Major anxiety, former smoker. Please note, 1. She would benefit from Pulmonary rehab on outpatient basis. 2. We are still assessing her oxygen requirements to check while walking. Additionally, she has diastolic dysfunction, probably handled by Cardiology. She can probably be discharged home with tapering dose of steroids, neb treatment, and cardiac medication. We will follow. Job ID: [id number] MTDD
[2019-02-17] MEDS: Potassium Chloride 20 MEQ TAB PO SCH (12:40)
--- NOTE | 2019-02-17 14:30 | PQF ---
ANJALI TAYLORZACH [id number] [facility]- B04 [id number] CLINICAL DOCUMENTATION IMPROVEMENT CLARIFICATION FORM: ICD-10 Updated PLEASE DO AN ADDENDUM TO THE PROGRESS NOTE WITH ANY DOCUMENTATION UPDATES OR ADDITIONS AND CARRY THROUGH TO DC SUMMARY. THANK YOU. DATE: 02-17-19 ATTN: DR. DR. MESA Please exercise your independent, professional judgment in responding to the clarification form. Clinical indicators are provided on the bottom of this form for your review Please check appropriate box(s): [ xx ] Acute Renal Failure (ARF) / Acute Kidney Injury (CORKY) [ xx ] CORKY w/ CKD stage III [ ] Insignificant Lab Values [ ] Other diagnosis [ ] Unable to determine In addition, please specify: Present on Admission (POA): [ xx ] Yes [ ] No [ ] Unable to determine National Kidney Foundation Guidelines for CKD Staging Stage I Kidney damage with normal or increased GFR GFR > 90 Stage II Kidney damage with mildly decreased GFR GFR 60-89 Stage III Kidney damage with moderately decreased GFR GFR 30-59 Stage IV Kidney damage with severely decreased GFR GFR 16-29 Stage V Kidney failure GFR <15 ESRD End Stage Renal Disease On dialysis Acute Renal Failure/Acute Kidney Failure defined as: Increases in SCr by (>) 0.3 mg/dl within 48 hours OR- Increases in SCr by (>) 1.5 times baseline, known or presumed to have occurred within the prior 7 days OR- Urine volume < 0.5 ml/kg/hour for 6 hours (KDIGO supplement 2012 for RIFLE/VERONIQUE criteria) For continuity of documentation, please document condition throughout progress notes and discharge summary. Thank You. CLINICAL INDICATORS - SIGNS / SYMPTOMS / LABS: GFR: 02-10-19: 47 02-12-19: 57 02-13-19: 49 02-14-19: 51 02-15-19: 51 CREATININE: 02-10-19: 1.16 02-12-19: 0.97 02-13-19: 1.12 02-14-19: 1.07 02-15-19 1.07 BUN: 02-10-: 11 02-12-19: 18 02-13-19: 22 02-14-19: 21 02-15-19: 22 RISK FACTORS: ER: TYLENOL -CODEINE #3, FUROSEMIDE, DIGOXIN, LEXAPRO, METOPROLOL, SPIRONOLACTONE TREATMENTS: ER: IVF NS X 2 L THANK YOU, RACHEL (This form is maintained as a part of the permanent medical record) 2015 [employer]. All Rights Reserved OZZIE [email or web address] Office: [phone] [facility]
[2019-02-17] MEDS: Furosemide 40 MG TAB PO SCH (15:35)
[2019-02-17] MEDS: HumaLOG 300 UNITS/3 ML VIAL SC PRN (17:56)
[2019-02-18] MEDS: Lorazepam 1 MG TAB PO SCH ×3 (05:56→21:27)
[2019-02-18] MEDS ORDERED: Levalbuterol HCl 0.63 MG/3 ML NEB NEB PRN (08:11)
[2019-02-18] MEDS ORDERED: Albuterol Sulfate 1.25 MG/3 ML NEB NEB PRN (08:19)
--- NOTE | 2019-02-18 09:13 | PRG ---
DATE OF SERVICE: 02/18/2019 SUBJECTIVE: This morning, she is better. Less short of breath. OBJECTIVE: VITAL SIGNS: Saturations are 90% on room air, respirations 20, pulse 118 and irregular, temperature 97, and blood pressure 104/67. CHEST: Decreased breath sounds. No wheezing. CARDIAC: Normal S1 and S2. No gallops. ABDOMEN: No masses. IMPRESSION: 1. Chronic obstructive pulmonary disease. 2. Supraventricular tachycardia. 3. Hypoxemia. PLAN: We will try to establish whether she needs home O2. She needs oxygen saturation tested when she is walking. Job ID: [id number]
--- NOTE | 2019-02-18 09:19 | PRG ---
DATE OF SERVICE: 02/18/2019 SUBJECTIVE: The patient continues to feel better. She denies chest pain. She has some shortness of breath with ambulation, but improving. She did have an episode today of her heart rate getting up in the 140s to 160s following a neb treatment and walking to the bathroom. She denied symptoms during that episode and seems to be improving at this time. Her cough continues to improve. Appetite is good. Positive bowel movements. Walking in the hallway. She declines home health at this time and states that she and her can take care of things with close followup. She did not meet criteria for home O2 as well. OBJECTIVE: VITAL SIGNS: Temperature 97.8, pulse of 85 to 160, respirations 18 to 20, pulse ox 90% to 96% on room air, blood pressure 104/67. GENERAL: She is awake and alert, in no acute distress. She is comfortable. No conversational dyspnea. NECK: Supple. HEART: Irregularly irregular and tachycardic. LUNGS: With rare rhonchi. No expiratory wheezes. ABDOMEN: Soft. EXTREMITIES: With no edema. LABORATORY DATA: Reviewed. Her Accu-Cheks have been 129, 265, 240, 156, and 98. ASSESSMENT AND PLAN: This is a 68-year-old female patient with a history of anxiety, hypertension, type 2 diabetes, admitted with respiratory failure, much improved at this point. 1. Respiratory distress, resolved, secondary to congestive heart failure and chronic obstructive pulmonary disease. 2. Congestive heart failure exacerbation, improved with diuresis. We will continue oral Lasix at this time and spironolactone for diastolic dysfunction. 3. Atrial fibrillation with rapid ventricular response. We will discontinue albuterol and switch to Xopenex p.r.n. Hopefully, this might improve her tachycardic spells. 4. Chronic obstructive pulmonary disease exacerbation. We will continue steroids, antibiotics, and neb treatments. Again, we will change to Xopenex. 5. Type 2 diabetes, worsened due to oral steroids. I will consider metformin, continue insulin sliding scale at this time. 6. Anxiety, stable on Lexapro and BuSpar and scheduled lorazepam. DISPOSITION: Due to episode of tachycardia this morning, we will likely hold discharge and see how she does with discontinuing the albuterol and possibly adjusting her rate controllers. Job ID: [id number]
--- NOTE | 2019-02-18 09:35 | PRG ---
DATE OF SERVICE: 02/18/2019 SUBJECTIVE: Ms. Matt is out on the floor. She is feeling better. OBJECTIVE: VITAL SIGNS: Her blood pressure is relatively low at 104/67. Pulse is 100 to 120, atrial fibrillation. LUNGS: Clear. CARDIAC: Normal S1, normal S2. ABDOMEN: Soft and nontender. ASSESSMENT: 1. Chronic atrial fibrillation, rate difficult to control. 2. Diastolic heart failure, improved. 3. Chronic obstructive pulmonary disease. PLAN: 1. She is on Cardizem CD 120 mg a day. 2. Metoprolol 25 mg a day, long-acting. 3. I have took her off the digoxin. I am very reluctant to give her Cardizem, Toprol, and digoxin. There is a high probability, she becoming bradycardic. 4. We will increase diltiazem dose starting tomorrow. 5. Hopefully home tomorrow if doing well. Job ID: [id number]
--- NOTE | 2019-02-18 10:40 | PRG ---
DATE OF SERVICE: 02/17/2019 SUBJECTIVE: Ms. Matt is breathing better, but whenever she gets up or after minimal exertion, her heart rate goes up. Her heart rate is in the 80-90 at rest, but with minimal exertion, goes to 110-120. OBJECTIVE: VITAL SIGNS: Her blood pressure is 140/98, pulse is 90. LUNGS: Clear. I do not hear any wheezing. CARDIAC: Irregularly irregular. ABDOMEN: Soft, nontender. EXTREMITIES: There is no edema. ASSESSMENT: 1. Atrial fibrillation, rate is not well controlled with any type of exertion on current regimen. 2. Diastolic heart failure, improved. PLAN: 1. Change to oral diuretics. 2. Stop the digoxin and substitute low-dose beta balbir. 3. Reduce diltiazem dose. Will need to watch to check and make sure her heart rate is not too low. As mentioned, we will stop the digoxin. It does not seem to be helping with exertional heart rate control and low-dose beta balbir will be needed. It would be unlikely to affect her lung function at this low dose. Job ID: [id number]
[2019-02-18] MEDS: Escitalopram Oxalate 20 mg Tablet PO SCH (10:45)
[2019-02-18] MEDS: Gabapentin 300 MG CAP PO SCH ×3 (10:45→21:26)
[2019-02-18] MEDS: Furosemide 40 MG TAB PO SCH ×2 (10:46→15:53)
[2019-02-18] MEDS: predniSONE 20 MG TAB PO SCH (10:46)
[2019-02-18] MEDS: Spironolactone 25 MG TAB PO SCH (10:48)
[2019-02-18] MEDS: busPIRone HCl 5 MG TAB PO SCH (10:48)
[2019-02-18] MEDS: Rivaroxaban 10 MG TAB PO SCH (10:49)
[2019-02-18] MEDS: Potassium Chloride 20 MEQ TAB PO SCH (10:49)
[2019-02-19] MEDS: Lorazepam 1 MG TAB PO SCH ×3 (06:08→21:01)
[2019-02-19] MEDS: Rivaroxaban 10 MG TAB PO SCH (09:33)
[2019-02-19] MEDS: predniSONE 20 MG TAB PO SCH (09:33)
[2019-02-19] MEDS: busPIRone HCl 5 MG TAB PO SCH (09:34)
[2019-02-19] MEDS: Furosemide 40 MG TAB PO SCH ×2 (09:35→13:50)
[2019-02-19] MEDS: Spironolactone 25 MG TAB PO SCH (09:35)
[2019-02-19] MEDS: Gabapentin 300 MG CAP PO SCH ×3 (09:35→21:01)
[2019-02-19] MEDS: Escitalopram Oxalate 20 mg Tablet PO SCH (09:35)
[2019-02-19] MEDS: Potassium Chloride 20 MEQ TAB PO SCH (13:50)
--- NOTE | 2019-02-19 15:14 | PRG ---
DATE OF SERVICE: 02/19/2019 SUBJECTIVE: Ms. Matt is very anxious to go home. OBJECTIVE: VITAL SIGNS: Temperature is 97.9, pulse 75, respirations 20, O2 saturation was 82% on room air improved to 92% on 2 L at rest, and blood pressure 115/78. HEENT: Unremarkable. NECK: No JVD. LUNGS: Clear, but distant breath sounds. CARDIAC: S1 and S2, regular. ABDOMEN: Soft. EXTREMITIES: No edema. ASSESSMENT: 1. Chronic obstructive pulmonary disease exacerbation. 2. Supraventricular tachycardia. PLAN: 1. Home oxygen 2 L nasal cannula. I do not think she will need this for very long, but she definitely needs it for the time being given her hypoxemia. 2. Wean prednisone over a couple of weeks. 3. Continue breathing treatments. Job ID: [id number]
--- NOTE | 2019-02-19 19:13 | PDOC.CTH ---
Cardiology Progress Note - Subjective She is requiring oxygen supplementation. She gets hypoxic when walking. - Objective Vital Signs Temp Pulse Resp BP Pulse Ox 02/19/19 13:10 98.3 F 104 H 20 120/73 86 L 02/19/19 07:45 97.9 F 85 20 115/78 90 L Admit Weight 197 lb 3 oz Weight 188 lb 4 oz 02/18/19 02/19/19 02/20/19 06:59 06:59 06:59 Intake Total 240 200 Output Total 2400 1850 Balance -2160 -1650 - Physical Examination General/Neuro: alert & oriented x3, NAD Neck: no JVD present Lungs: other: (Reduced breath soundsbi;at. ) Heart: RRR Abdomen: NT/ND Extremities: + edema B (1) - Telemetry Telemetry Rhythm: Afib HR 90's. - Labs Result Diagrams: 02/15/19 04:09 02/15/19 04:09 - Assessment/Plan 1. Chronic afib, rate controlled. 2. Acute on chornic diastolic heart failure. 3. COPD PLAN: - Will need home O2. - Continue PO dose of lasix. - Home any time from cardiac perspective with current regimen.
--- NOTE | 2019-02-20 03:59 | DIS ---
DATE OF ADMISSION: 02/10/2019 DATE OF DISCHARGE: 02/19/2019 DISCHARGE DIAGNOSES: 1. Respiratory distress, resolved. 2. Congestive heart failure exacerbation. 3. Atrial fibrillation with rapid ventricular response, resolved. 4. Chronic obstructive pulmonary disease exacerbation. 5. Diabetes. 6. Anxiety. BRIEF HISTORY: This is a 68-year-old white female with a history of atrial fibrillation, CHF, COPD with a long tobacco history, who presented with palpitations and with atrial fibrillation, RVR. She was admitted for further evaluation and rate control. HOSPITAL COURSE: Dr. García and Dr. Barahona were consulted. The patient's medications were adjusted. The patient was initially on albuterol, which may have contributed also to tachycardia, this was stopped. The patient was diuresed with Lasix and over time her congestive heart failure resolved. She is still presently on prednisone. She has evidence of COPD with wheezing, which persists today. She is presently being weaned from her prednisone. She remains in atrial fibrillation, however, her rate is well controlled. Her medications have been adjusted as above. We will continue to follow on an outpatient basis. The patient will be discharged hopefully today and follow up with Dr. Lara in the next 2 to 3 days. DISCHARGE MEDICATIONS: Include buspirone 15 daily, diltiazem 180 daily, Lexapro 20 daily, Lasix 40 b.i.d., gabapentin 300 t.i.d., Levaquin 500 daily for additional 5 days, metoprolol 25 daily, prednisone 10 daily #10, Xarelto 20 daily, and spironolactone 25 daily. Job ID: [id number]
[2019-02-20] MEDS: Lorazepam 1 MG TAB PO SCH ×2 (05:53→13:48)
[2019-02-20] MEDS: predniSONE 20 MG TAB PO SCH (09:31)
[2019-02-20] MEDS: Spironolactone 25 MG TAB PO SCH (09:31)
[2019-02-20] MEDS: Rivaroxaban 10 MG TAB PO SCH (09:32)
[2019-02-20] MEDS: Gabapentin 300 MG CAP PO SCH (09:32)
[2019-02-20] MEDS: Escitalopram Oxalate 20 mg Tablet PO SCH (09:32)
[2019-02-20] MEDS: Furosemide 40 MG TAB PO SCH ×2 (09:32→13:48)
[2019-02-20] MEDS: busPIRone HCl 5 MG TAB PO SCH (09:32)
--- NOTE | 2019-02-20 09:50 | PRG ---
DATE OF SERVICE: 02/20/2019 SUBJECTIVE: See discharge dictation from yesterday. This morning, the patient continues to improve. Her cough has improved. She is breathing easier. However, she is on 2 L nasal cannula. Off the oxygen, her level fluctuates between 88 to 92. It drops lower if she exerts herself. OBJECTIVE: VITAL SIGNS: Temperature 97.8, pulse 76, respirations 18, pulse ox 96% on 2 L nasal cannula, and blood pressure 122/66. HEART: Irregular, but rate controlled. LUNGS: Clear, improved from yesterday. ABDOMEN: Soft. ASSESSMENT: 1. Respiratory distress, resolved. 2. Acute on chronic diastolic congestive heart failure. 3. Atrial fibrillation with rapid ventricular response, resolved. 4. Chronic obstructive pulmonary disease exacerbation. 5. Diabetes. 6. Anxiety. 7. A 35-year tobacco history, stopped in 2004. DISCHARGE MEDICATIONS: 1. Buspirone 15 mg p.o. daily. 2. Diltiazem 180 daily. 3. Lexapro 20 daily. 4. Lasix 40 b.i.d. 5. Gabapentin 300 t.i.d. 6. Ativan 1 mg p.o. q.8 p.r.n. 7. Toprol 25 daily. 8. Protonix 40 daily. 9. Potassium 20 daily. 10. Prednisone 10 daily. 11. Xarelto 20 daily. 12. Aldactone 25 daily. 13. Xopenex q.6 p.r.n. 14. Levaquin 500 daily, #5. 15. Claritin 10 daily. 16. Pravastatin 40 daily. Job ID: [id number]
[2019-02-20] MEDS: Potassium Chloride 20 MEQ TAB PO SCH (12:15)
[2019-02-20 12:37] VITALS: BP 95/54; TEMP 99
--- NOTE | 2019-02-20 16:09 | PDOC.CTH ---
Cardiology Progress Note - Subjective Doing well. No new issues. - Objective Vital Signs Temp Pulse Resp BP BP Pulse Ox 02/20/19 12:15 94 L 02/20/19 11:35 99.0 F 75 20 95/54 L 86 L 02/20/19 08:15 98.0 F 61 18 103/69 91 L Admit Weight 197 lb 3 oz Weight 183 lb 6 oz 02/19/19 02/20/19 02/21/19 06:59 06:59 06:59 Intake Total 200 400 Output Total 1850 Balance -1650 400 - Physical Examination General/Neuro: alert & oriented x3, NAD Neck: no JVD present Lungs: other: (Reduced breath sounds bilat ) Heart: RRR Abdomen: NT/ND Extremities: other: (no edema) - Telemetry Telemetry Rhythm: Afib HR 80's to 90's. - Labs Result Diagrams: 02/15/19 04:09 02/15/19 04:09 - Assessment/Plan 1. Chronic afib, rate controlled. 2. Acute on chornic diastolic heart failure. 3. COPD PLAN: - Home O2 set up. - Continue PO dose of lasix at current dose. - Home any time from cardiac perspective with current regimen.
--- NOTE | 2019-02-22 15:35 | PRG ---
DATE OF SERVICE: 02/15/2019 SUBJECTIVE: This morning, she is doing better. She is less short of breath, less coughing and wheezing. She was seen over the weekend by Dr. Barahona. OBJECTIVE: VITAL SIGNS: Her O2 saturation is 95% on supplemental oxygen, pulse 80, respiratory rate 18, and blood pressure 130/80. CHEST: Decreased breath sounds. No wheezing. CARDIAC: Normal S1 and S2. No gallops. ABDOMEN: Soft. No masses. IMPRESSION: 1. Severe chronic obstructive pulmonary disease, on BiPAP, improved. 2. Congestive heart failure. 3. Morbid obesity. PLAN: We will do a baseline PFT on her and O2 sat to see whether she qualifies for home O2. Otherwise, continue neb treatments and steroids. Disposition as per primary care physician. Job ID: [id number]
== END 2019-02-20 15:05 | disposition home or self-care (01) | DRG 291 ==
LOC: ERS 11:02 → ERHOLD 13:05 → IMCU/EMU 16:54 → 2NO 02-17 18:40
PROVIDERS: ADMIT Family Medicine; ATTEND Family Medicine
PROC: 5A09357 Assistance with Respiratory Ventilation, Less than 24 Consecutive Hours, Continuous Positive Airway Pressure (ICD-10-PCS; principal; 2019-02-10)
DX: I13.0 Hypertensive heart and chronic kidney disease with heart failure and stage 1 through stage 4 chronic kidney disease, or unspecified chronic kidney disease (principal); J96.22 Acute and chronic respiratory failure with hypercapnia; I50.33 Acute on chronic diastolic (congestive) heart failure; J96.21 Acute and chronic respiratory failure with hypoxia; J44.1 Chronic obstructive pulmonary disease with (acute) exacerbation; N17.9 Acute kidney failure, unspecified; G93.40 Encephalopathy, unspecified; E11.22 Type 2 diabetes mellitus with diabetic chronic kidney disease; E66.01 Morbid (severe) obesity due to excess calories; I48.2 Chronic atrial fibrillation; E78.5 Hyperlipidemia, unspecified; K21.9 Gastro-esophageal reflux disease without esophagitis; F41.9 Anxiety disorder, unspecified; N18.3 Chronic kidney disease, stage 3 (moderate); Z68.32 Body mass index [BMI] 32.0-32.9, adult; Z87.891 Personal history of nicotine dependence; Z79.899 Other long term (current) drug therapy
CPT/HCPCS: 36415; 36416; 71045; 71046; 80048; 80053; 80162; 81001; 82805; 83605; 83880; 85025; 87040; 87086; 87324; 87449; 93005; 93010; 93306; 93798; 94060; 94640; 94660; 94727; 96360; 96361; 96365; 96367; J0456; J0692; J0696; J1940; J1956; J2920; J3490; J7512; J7614; J7620